=== PATIENT | male | born 1970 | race Caucasian/White ===

== ENCOUNTER 2021-05-17 13:13 | Emergency (ER) | payer OTHER, SELFPAY ==
[2021-05-17 13:15] VITALS: BP 150/83; PULSE 91; RESP 16; TEMP 36.4; O2SAT 98; BMI 31.1
--- NOTE | 2021-05-17 13:32 | EKG12_ITS ---
Test Reason : Blood Pressure : / mmHG Vent. Rate : 077 BPM Atrial Rate : 077 BPM P-R Int : 144 ms QRS Dur : 096 ms QT Int : 392 ms P-R-T Axes : 032 013 021 degrees QTc Int : 443 ms Normal sinus rhythm Consider precordial lead misplacement (V1-V2) Consider repeat ECG Abnormal ECG Confirmed by DANIEL FRAGOSO, DES ([id number]), editorial specialist MOE MASSEY ([id number]) on 05/18/2021 11:45:39 AM Referred By: MARILYNN Confirmed By:DES SANCHEZ MD
--- NOTE | 2021-05-17 13:34 | NURSING ---
NO OLD EKGS
--- NOTE | 2021-05-17 14:46 | EX.ED.DYSGE1 ---
HPI History of Present Illness Chief Complaint: Syncope Detail of Chief Complaint: Syncopal episode at rest Informant: patient Onset/Context/Timing Onset: Hours Context: Sudden Onset Timing: Intermittent Quality: Patient states he became warm, sweaty and passed out Location: Sitting in van Current Severity: Not back to normal Maximum Severity: Moderate Worsened by: Nothing specific Relieved by: Nothing Associated Symptoms Associated Symptoms: Vagal like symptoms Narrative Narrative: Patient is a 50-year-old male who has no significant past medical history who presents after passing out. He was sitting in a van. He states he became warm and sweaty and the next thing he recalls he was on the floor. He presently denies headache. He denies double vision, blurred vision loss of vision. He denies ringing his ears or decreased hearing. He denies drainage from his nose or blood from his nose. He denies injury to his teeth. He denies neck pain. He denies chest pain or shortness of breath. He denies history of VTE. He denies leg pain, swelling discoloration. He denies black or maroon stool the last week. He has no other complaints. Prior similar symptoms: No Recent Illness/Hospitalization: No PFSH PFSH Medical History no medical history no medical history Home Medications NK 05/17/21 [History Last Taken Unknown] Allergy/AdvReac Type Severity Reaction Status Date / Time No Known Allergies Allergy Verified 05/17/21 13:14 Surgical History no surgical history Social History (Updated 05/17/21 @ 14:[address] Julio Davis MD) household members: spouse Smoking Status: Never smoker substance use type: does not use ROS ROS ED Constitutional Constitutional ED: Denies chills, fever(s), subjective or sweats Eyes Eyes: Denies blurry vision, change in vision or diplopia ENT ENT ED: Denies ear pain, rhinorrhea or sore throat Cardiovascular Cardiovascular: Denies chest pain, orthopnea, palpitations, paroxysmal nocturnal dyspnea or racing heartbeat Respiratory/Chest Respiratory/Chest: Denies cough, dyspnea, dyspnea on exertion, orthopnea or paroxysmal nocturnal dyspnea Gastrointestinal Gastrointestinal: Reports nausea; Denies abdominal pain, constipation, diarrhea, melena or vomiting Genitourinary Genitourinary ED: Denies dysuria, hematuria or urinary frequency Musculoskeletal Musculoskeletal: Reports other Details: Complains of pain over the trapezius and right shoulder that are chronic. ; Denies arthralgias, back pain, myalgias or neck pain Integumentary Denies rash Neurologic Neurologic: Denies headache(s), paresthesias or weakness Hematologic/Lymphatic Hematologic/Lymphatic: Denies anemia, easy bleeding or easy bruising EXAM Physical Exam Const Vital Signs: 05/17/21 13:15 05/17/21 13:38 Temperature 97.5 F L Temperature Source Oral Pulse Rate 91 Respiratory Rate 16 Respiratory Effort Normal Respiratory Pattern Normal Blood Pressure 150/83 H Blood Pressure Mean 105 Pulse Ox 98 Oxygen Delivery Method Room Air Positive well nourished, well developed and obese General Appearance ED: well developed and NAD; Negative for cyanotic, diaphoretic or pallor Nutritional Appearance: obese HEENT Reports TM's clear and moist mucous membranes Negative for trauma or tenderness Tympanic Membrane ED: Yes TM's clear Eyes PERRL and EOMs intact bilaterally General Eye ED: Negative for pale conjunctiva or scleral icterus Neck no lymphadenopathy, supple and no JVD Chest Wall Negative for inspection of chest normal or palpation of chest normal Resp normal respiratory effort and clear to auscultation bilaterally Effort and Inspection: Negative for pain with movement Cardio regular rate, regular rhythm, S1 normal heart sound, S2 normal heart sound and no murmurs GI normal to inspection, nondistended, normoactive bowel sounds, non-tender, non-distended and no masses; Negative for hepatosplenomegaly Auscultation: normoactive bowel sounds Palpation: soft Back/Spine no CVA tenderness Cervical Spine: Negative for cervical spine tenderness Thoracic Spine / Upper Back: paraspinal muscle tenderness; Negative for thoracic spinal tenderness Lumbar Spine / Lower Back: Negative for lumbar spinal tenderness Extremity normal to inspection General Extremety ED: Negative for tenderness Neuro oriented x3, CN's II-XII intact bilaterally and no sensory deficits noted Sensorium / Orientation: alert Motor Exam: strength 5/5 throughout Psych mental status grossly normal Skin no rashes or lesions noted and no wounds General Skin Exam: Negative for jaundice or pallor MDM MDM MDM Narrative Medical decision making narrative: Aced on patient's description he had a vasovagal syncopal episode. We will get an EKG to rule out acute ischemic changes. If there is no acute ischemic changes he will be discharged home. Rhythm Strip Rate: 76 Ectopy: None EKG Initial EKG: Attestation: I personally reviewed and interpreted this EKG as follows: Interpretation: Sinus Rhythm (Normal sinus rhythm with a ventricular rate of 77. NV interval is 144 ms. QS durations 96 ms. QT duration 392 ms. [place] is normal. There is decreased anterior force. There is no acute ischemic changes noted.) Discharge Plan Triage Chief Complaint: Syncope ED Provider: Julio Davis Dx/Rx/DC Orders Clinical Impression: Vasovagal syncope Instructions: Understanding Vasovagal Syncope, ED Fainting, Vagal Reaction Prescriptions: No Action NK RF: 0 Primary Care Provider: Ian Khan Referrals: Ian Khan DO [Primary Care Provider] - As Needed Disposition Disposition: Home, Self Care
[2021-05-17 15:06] VITALS: BP 122/95; PULSE 85; RESP 14; O2SAT 98
== END 2021-05-17 15:07 | disposition home or self-care (01) ==
PROVIDERS: Emergency Provider Emergency Medicine; PCP Family Medicine; Visit Provider Emergency Medicine
DX: R55 Syncope and collapse (principal); E66.9 Obesity, unspecified; Z68.31 Body mass index [BMI] 31.0-31.9, adult
CPT/HCPCS: 93005; 99282